=== PATIENT | female | born 1990 ===

== ENCOUNTER 2018-08-24 16:08 | Emergency (ER) | payer OTHER ==
[2018-08-24 16:18] VITALS: O2SAT 100
[2018-08-24] MEDS ORDERED: Morphine 4 MG/ML VIAL IV ONE (16:59)
[2018-08-24] MEDS ORDERED: Sodium Chloride 0.9% 1,000 ML IV STA (16:59)
--- NOTE | 2018-08-24 17:02 | ED PDOC ---
HPI: Female Pain Time Seen by Provider: 08/24/18 16:38 Chief Complaint (Nursing): Female Genitourinary Chief Complaint (Provider): Pelvic cramps History Per: Patient History/Exam Limitations: no limitations Onset/Duration Of Symptoms: Days (today) Additional Complaint(s): Pt. with extensive endometriosis. Seen by her obgyn yesterday who did a not evaluation physically and an ultrasound. Today started having pelvic pain and some spotting. Tried naproxen and tylenol. Pain radiates to the back. No numbness, tingles, weakness, incontinence, constipation. No fever, cough. No dysuria. States she has had percocet and vicodin for the pain in the past. Suppose to have surgery soon for it. Past Medical History Reviewed: Nursing Documentation, Vital Signs Vital Signs: Last Vital Signs Temp 97.9 F 08/24/18 16:14 Pulse 92 H 08/24/18 16:14 Resp 16 08/24/18 16:14 BP 126/80 08/24/18 16:14 Pulse Ox 100 08/24/18 16:14 - Medical History Other PMH: endometriosis - Surgical History Other surgeries: 2 previous endometriosis surgeries - Family History Family History: States: Unknown Family Hx - Living Arrangements Living Arrangements: With Family - Allergies Allergies/Adverse Reactions: Allergies Allergy/AdvReac Type Severity Reaction Status Date / Time ammonium peroxydisulfate Allergy RASH Verified 08/24/18 16:14 soy Allergy RASH Verified 08/24/18 16:14 nickel Allergy RASH Uncoded 08/24/18 16:14 valium Allergy RASH Uncoded 08/24/18 16:14 Review of Systems ROS Statement: Except As Marked, All Systems Reviewed And Found Negative Genitourinary Female: Positive for: Vaginal Bleeding, Pelvic Pain Physical Exam - Reviewed Nursing Documentation Reviewed: Yes Vital Signs Reviewed: Yes - Physical Exam Appears: Positive for: Non-toxic, No Acute Distress Head Exam: Positive for: ATRAUMATIC, NORMAL INSPECTION, NORMOCEPHALIC Skin: Positive for: Normal Color, Warm, DRY Eye Exam: Positive for: EOMI, Normal appearance, PERRL ENT: Positive for: Normal ENT Inspection Neck: Positive for: Normal, Painless ROM Cardiovascular/Chest: Positive for: Regular Rate, Rhythm Respiratory: Positive for: CNT, Normal Breath Sounds Gastrointestinal/Abdominal: Positive for: Soft, Tenderness (across lower pelvis) Back: Positive for: Normal Inspection. Negative for: L CVA Tenderness, R CVA Tenderness Extremity: Positive for: Normal ROM. Negative for: Tenderness Neurologic/Psych: Positive for: Alert, Oriented - Laboratory Results Result Diagrams: 08/24/18 17:33 08/24/18 17:33 Lab Results: no acute - ECG O2 Sat by Pulse Oximetry: 100 Pulse Ox Interpretation: Normal - Progress ED Course And Treament: 1840: Stable. AAOx3. Pain controlled. Dr. Hurt to take over care. FU on US. Disposition - Clinical Impression Clinical Impression: Endometriosis - Patient ED Disposition Is Patient to be Admitted: Transfer of Care - Disposition Disposition Time: 18:42 Condition: STABLE Patient Signed Over To: Kj Hurt
[2018-08-24] MEDS ORDERED: Morphine 4 MG/ML VIAL ONE (17:15)
[2018-08-24 17:55] LABS: BASO # 0.1 K/uL (0.0-0.2); BASO % 1.1 % (0.0-2.0); EOS # 0.2 K/uL (0.0-0.7); EOS % 2.6 % (0.0-4.0); HEMOGLOBIN 14.2 g/dL (12.0-16.0); LYMPH # 1.9 K/uL (1.0-4.3); LYMPH % 28.1 % (20.0-40.0); MEAN CELL VOLUME 90.8 fl (81.0-99.0); MEAN CORPUSCULAR HEMOGLOBIN 30.4 pg (27.0-31.0); MEAN CORPUSCULAR HGB CONC 33.5 g/dL (33.0-37.0); MEAN PLATELET VOLUME 8.6 fl (7.2-11.7); MONO # 0.6 K/uL (0.0-0.8); MONO % 9.2 % (0.0-10.0); NEUT # 3.9 K/uL (1.8-7.0); RBC 4.66 Mil/uL (3.80-5.20); RED CELL DISTRIBUTION WIDTH 13.2 % (11.5-14.5); WHITE BLOOD COUNT 6.6 K/uL (4.8-10.8)
[2018-08-24 18:00] LABS: BLOOD UREA NITROGEN 18 mg/dl (7-17); CALCIUM 9.5 mg/dL (8.4-10.2); GFR NON-AFRICAN AMERICAN > 60
--- NOTE | 2018-08-24 19:24 | ED PDOC ---
- Laboratory Results Result Diagrams: 08/24/18 17:33 08/24/18 17:33 - ECG O2 Sat by Pulse Oximetry: 100 Medical Decision Making Medical Decision Making: Time: 1899 Patient was endorsed to provider from Chau Reich MD. Pending US. Time: 2005 Transvaginal US FINDINGS: ENDOMETRIUM: Suspicion of intrauterine device in place within the endometrial cavity. Endometrial stripe measured 0.5 cm in thickness. UTERUS/CERVIX: The uterus appears within normal limits. No uterine fibroid or other mass evident. RIGHT OVARY: Normal Doppler flow. No abnormal mass. LEFT OVARY: Cyst left ovary measuring 1.2 x 1 x 1.2 cm.. No abnormal mass. FREE FLUID: No free fluid. IMPRESSION: Technically limited study. Intrauterine device is suggested within the endometrial cavity. Small left ovarian cyst. Close clinical correlation and follow-up study recommended. Electronically signed on Aug 24, 2018 8:06:22 PM EST by: Angel Shahid M.D., Certified by [facility], Diagnostic Radiology Time: 2034 Patient made aware of ovarian cyst. she actually feels better- everytime i go to reevaluate her she is on her phone and comfortable. and is stable to be disc harged home. Scribe Attestation: Documented by Ollie Robles, acting as a scribe for provider Kj Hurt MD. All medical record entries made by the Scribe were at my direction and personally dictated by me. I have reviewed the chart and agree that the record accurately reflects my personal performance of the history, physical exam, medical decision making, and the department course for this patient. I have also personally directed, reviewed, and agree with the discharge instructions and disposition. Disposition Counseled Patient/Family Regarding: Studies Performed, Diagnosis, Need For Followup - Clinical Impression Clinical Impression: Endometriosis, Ovarian cyst - POA Present On Arrival: None - Disposition Disposition: Routine/Home Disposition Time: 20:35 Condition: IMPROVED Additional Instructions: follow up with your primary doctor/radiation safety officer in 1-2 days return to the ED with any worsening or concerning symptoms Prescriptions: Ibuprofen [Motrin] 600 mg PO Q6H PRN #20 tab PRN Reason: Pain, Moderate (4-7) Instructions: Endometriosis, Ovarian Cyst (DC) Forms: [employer] ([place]namese), [facility] ED School/Work Excuse
[2018-08-24 20:46] VITALS: BP 131/74; PULSE 68; RESP 18; TEMP 98
--- NOTE | 2018-08-25 10:49 | US ---
Date of service: 08/24/2018 HISTORY: Vaginal bleeding. LMP 07/04/2015, irregular cycles. COMPARISON: None available. TECHNIQUE: Transvaginal only. Real -time technique with 2D, duplex and color Doppler FINDINGS: UTERUS: Measures 3.8 x 3.5 x 7.6 cm. Normal in size and appearance. No fibroid or other mass lesion seen. ENDOMETRIUM: Measures 5.0 mm in diameter. IUD identified in the endometrial canal. CERVIX: No cervical abnormality identified. RIGHT OVARY: Measures 1.1 x 1.4 x 2.3 cm. No solid mass. Normal flow. LEFT OVARY: Measures 2.8 x 2.2 x 4.2 cm. No solid mass. Normal flow. Simple cyst 1.2 x 0.8 FREE FLUID: No significant free fluid noted. OTHER FINDINGS: None. IMPRESSION: No acute findings related to/ accounting for the clinical presentation. Unremarkable uterus, endometrial echo complex. IUD documented. Simple cyst left adnexa. Concordant findings (preliminary report) provided by [facility].
== END 2018-08-24 20:48 | disposition home or self-care (01) ==
LOC: H.ER 16:08
DX: N80.9 Endometriosis, unspecified (principal); N83.202 Unspecified ovarian cyst, left side; N93.9 Abnormal uterine and vaginal bleeding, unspecified
CPT/HCPCS: 76830; 80048; 81025; 85025; 96360; 99285; J1885; J2270; J7030